=== PATIENT | male | born 1970 | race Caucasian/White ===

== ENCOUNTER 2016-06-26 20:01 | Emergency (ER) | payer OTHER ==
[~2016-06-26] VITALS: Ht 167.6 cm; Wt 81.6 kg
[2016-06-26 20:37] VITALS: BP_SYST 127
[2016-06-26] MEDS ORDERED: KETOROLAC TROMETHAMINE 60 MG/2 ML VIAL IM ONE (20:45)
[2016-06-26] MEDS ORDERED: DEXAMETHASONE SOD PHOSPHATE 10 MG/ML VIAL IM ONE (20:45)
[2016-06-26 21:02] VITALS: BP_SYST 127
== END 2016-06-26 21:02 | disposition home or self-care (01) ==
LOC: SED 20:01
DX: M54.17 Radiculopathy, lumbosacral region (principal); M54.40 Lumbago with sciatica, unspecified side
CPT/HCPCS: 96372; 99284; J1100; J1885

== ENCOUNTER 2016-07-02 19:50 | Emergency (ER) | payer OTHER ==
[~2016-07-02] VITALS: Ht 167.6 cm; Wt 81.6 kg
[2016-07-02 20:29] VITALS: BP 112/70; PULSE 71; RESP 16; TEMP 98.6; O2SAT 96
--- NOTE | 2016-07-02 20:54 | NUR ---
Patient to ER bed 08 to gown for evaluation. Side rails up. Report given to Krysta.
[2016-07-02] MEDS ORDERED: KETOROLAC TROMETHAMINE 60 MG/2 ML VIAL IM ONE (21:00)
[2016-07-02] MEDS ORDERED: DEXAMETHASONE SOD PHOSPHATE 10 MG/ML VIAL IM ONE (21:15)
--- NOTE | 2016-07-02 21:20 | NUR ---
Pt brought by self, A&Ox4 , pt c/o lower back pain 7/10 radiating to R Leg, skin pink and warm, cap refill <3, VSS.
--- NOTE | 2016-07-02 21:20 | NUR ---
Blaire Oseguera CANCER PROGRAM DIRECTOR at bedside examining patient
[2016-07-02 21:30] VITALS: BP 124/81; PULSE 67; RESP 16; TEMP 98.4; O2SAT 97
--- NOTE | 2016-07-02 21:30 | NUR ---
Patient given written and verbal discharge instructions and verbalizes understanding. ER MD discussed with patient the results and treatment provided. Patient in stable condition. ID arm band removed. Rx of GABAPENTIN and MOBIC given. Patient educated on pain management and to follow up with PMD. Pain Scale 2/10. Opportunity for questions provided and answered.
== END 2016-07-02 21:20 | disposition home or self-care (01) ==
LOC: SED 19:50
DX: M54.17 Radiculopathy, lumbosacral region (principal)
CPT/HCPCS: 96372; 99284; J1100; J1885